=== PATIENT | female | born 1980 | race Caucasian/White ===

== ENCOUNTER 2016-11-24 11:23 | Observation (INO) | payer OTHER ==
[2016-11-04 10:47] LABS: ADD DIFF? NO; ADD MORPH? NO; ADD SCAN? NO; ATYPICAL LYMPHOCYTE FLAG 10 (0-99); FRAGMENT RBC FLAG 0 (0-99); HEMATOCRIT 41.4 % (38.0-47.0); HEMOGLOBIN 13.9 g/dL (12.6-16.3); LEFT SHIFT FLG 0 (0-99); LIPEMIA HEMOLYSIS FLAG 80 (0-99); MEAN CELL HEMOGLOBIN 30.3 pg (27.9-34.1); MEAN CELL HEMOGLOBIN CONCENTR. 33.6 g/dL (32.4-36.7); MEAN CELL VOLUME 90.4 fL (81.5-99.8); PLATELET CLUMPS FLAG 20 (0-99); PLATELET COUNT 253 10^3/uL (150-400); RED BLOOD CELL COUNT 4.58 10^6/uL (4.18-5.33); RED CELL DISTRIBUTION WIDTH 13.3 % (11.5-15.2)
--- NOTE | 2016-11-24 07:29 | PDGENHP ---
History and Physical History and Physical: Assessment and Plan: 1. Dysmenorrhea Sharyn's dysmenorrhea, dyschezia, and pelvic pain are highly concerning for endometriosis. We reviewed all conservative and surgical options. At the end of our discussion she is interested in undergoing surgery. This will be a robotic assisted hysterectomy, excision of all endometriosis. She has given me permission to remove one or both ovaries if I deem it in her best interest to reduce her chance of recurrent or persistent pain. 2. Endometriosis of pelvic peritoneum 3. Rectocele She is symptomatic from her rectocele. This will be repaired at the same time. 4. Genuine stress incontinence She would benefit from a mid urethral sling procedure. Subjective: Patient ID: Sharyn Michaud is a 36 y.o. female who presents to [facility] for surgical consultation. TAMARA Coles is a 36-year-old para 2 woman using vasectomy for contraception. Last May she began feeling some tailbone area pain. She discussed this with her chiropractor. She then was referred to Dr. Flores for a possible spine issue. He ordered an MRI which showed a retroverted uterus with possible associated scarring. She then was referred to Dr. Tejada for further evaluation. She had a pelvic ultrasound which was reportedly normal. He performed an endometrial biopsy given her irregular menstrual cycles. This showed mid secretory endometrium with no hyperplasia nor malignancy. She also discussed with him her leaking urine with exercise and coughing. She then was referred to me. Her cycles have been very irregular, anywhere from 28-90 days. She typically will develop pelvic pain beginning several days before her menstrual flow. The first 2 days of bleeding causes horrific pain in her pelvis, hips, vagina, and tailbone area. Fortunately she has no dyspareunia. She does have some deep dyschezia. She also finds it difficult to pass bowel movements as though it gets stuck just inside the anus. She will put her feet up on a stool and lean back to pass bowel movements. The tailbone area pain feels like a dull burning ache. It will radiate to her low back and hips. It can wax and wane but is typically worse the first 2 days of her menstrual cycle. She has seen gastroenterology who performed a flexible sigmoidoscopy. No abnormalities were seen. However he felt she might have some pelvic floor muscle spasms and recommended physical therapy. Additionally she has seen Dr. Christine who diagnosed her with low estrogen and progesterone. She was started on bioidentical hormones which did not help any of her symptoms. PastMedicalHistory Past Medical History: Diagnosis Date JACIEL positive Ganglion of wrist Heart palpitations 1999 at high elevation/ low o2 sat PastSurgicalHistory Past Surgical History: Procedure Laterality Date BREAST ENHANCEMENT SURGERY 2007 TONSILLECTOMY WRIST SURGERY 2010 CURRENT MEDICATIONS: Current Outpatient Prescriptions Medication Sig etonogestrel-ethinyl estradiol (NUVARING) 0.12-0.015 mg/[address] each vaginally See Admin Instructions. Reported on 10/12/2016 LACTOBACILLUS ACIDOPHILUS (PROBIOTIC PO) Reported on 10/12/2016 MULTIVIT-MINERALS/FOLIC ACID (VITACEL PO) Reported on 10/12/2016 multivitamin capsule Take 1 capsule by mouth daily. Reported on 10/12/2016 No current facility-administered medications for this visit. ALLERGIES: Penicillins I have reviewed, verified and agree with the past medical, surgical, , family, social and ROS history as documented by the RN today. Review of Systems Objective: Vital Signs: Visit Vitals BP 100/60 Pulse 54 Temp 37.1 C (98.8 F) Resp 16 Ht 1.562 m (5' 1.5") Wt 62.1 kg (136 lb 12.8 oz) SpO2 98% BMI 25.43 kg/m2 Physical Exam Gen: This is an alert, well developed woman in no distress. Neuro: She moves all extremities. Psych: She is appropriate, oriented, with normal affect. Neck: No thyroid enlargement, adenopathy, or tenderness. Lungs: Clear to ascultation, no wheezes or rales. Heart: Regular rate and rhythm without obvious murmurs. Abdomen: Soft, non-tender, without guarding, rebound, or masses. Extremities: No edema or cyanosis. Pelvic: Normal external genitalia. Vagina without discharge, adequately estrogenized. Cervix without lesions or discharge. Uterus normal sized. Adnexa without enlargement. The introitus is mildly gaping. She has an almost third degree rectocele. The urethra is mobile with obvious leakage of urine with coughing. She has tenderness surrounding the cervix and throughout the posterior cul-de-sac. The uterus has minimal mobility with extreme tenderness with rotation. DATA: I have reviewed patient's [facility] medical records. Summary findings include as noted above. TIME/COMMUNICATION: I personally spent a total of 50 minutes. Of that 35 minutes was counseling/ coordination of patient's care. See my note above for details. Zach Pedro MD Board Certified Female Pelvic Medicine and Reconstructive Surgery Director of Minimally Invasive Gynecologic Surgery, [facility] Minimally Invasive Gynecologic Surgery Designee
[~2016-11-24 11:23] MED LIST: PHENAZOPYRIDINE HCL 200 MG TAB PO ONE; PHENAZOPYRIDINE HCL 200 MG TAB PO SCH; ceFAZolin 2 GM/DEXTROSE 100 ML IV ONE
[2016-11-24] MEDS ORDERED: LIDOCAINE 1% 2 ML INJ ONE (12:39)
[2016-11-24] MEDS ORDERED: LIDOCAINE 1% 2 ML INJ ID PRN (12:45)
[2016-11-24] MEDS ORDERED: LR 1,000 ML IV ONE (12:45)
[2016-11-24] MEDS ORDERED: CLINDAMYCIN 900 MG/DEXTROSE 50 ML IV ONE (13:07)
[2016-11-24] MEDS ORDERED: ROCURONIUM 50 MG/5 ML VIAL ONE (13:27)
[2016-11-24] MEDS ORDERED: MIDAZOLAM 2 MG/2 ML VIAL ONE (13:27)
[2016-11-24] MEDS ORDERED: DEXAMETHASONE 4 MG/ML VIAL ONE ×2 (13:27)
[2016-11-24] MEDS ORDERED: LIDOCAINE 2% 100 MG/5 ML SYR ONE (13:27)
[2016-11-24] MEDS ORDERED: RANITIDINE 50 MG/2 ML VIAL ONE (13:27)
[2016-11-24] MEDS ORDERED: PROPOFOL 200 MG/20 ML VIAL ONE (13:27)
[2016-11-24] MEDS ORDERED: PHENAZOPYRIDINE HCL 200 MG TAB PO ONE (13:30)
[2016-11-24] MEDS ORDERED: BUPIVACAINE/EPI 0.5% 30 ML SDV ONE (13:32)
--- NOTE | 2016-11-24 14:25 | PDANEPAE ---
ANE Past Medical History - Cardiovascular History Hx Hypertension: No Hx Arrhythmias: Yes Hx Chest Pain: No Hx Coronary Artery / Peripheral Vascular Disease: No Hx CHF / Valvular Disease: No Hx Palpitations: No - Pulmonary History Hx COPD: No Hx Asthma/Reactive Airway Disease: No Hx Recent Upper Respiratory Infection: No Hx Oxygen in Use at Home: No - Neurologic History Hx Cerebrovascular Accident: No Hx Seizures: No Hx Dementia: No - Endocrine History Hx Diabetes: No - Renal History Hx Renal Disorders: No - Liver History Hx Hepatic Disorders: No - Neurological & Psychiatric Hx Hx Neurological and Psychiatric Disorders: Yes - Cancer History Hx Cancer: No - Congenital Disorder History Hx Congenital Disorders: No - GI History Hx Gastrointestinal Disorders: No - Chronic Pain History Chronic Pain: No ANE Review of Systems - Exercise capacity METS (RN): 4 METS ANE Patient History - Allergies Allergies/Adverse Reactions: Penicillins Allergy (Verified 10/29/16 14:44) Other-Enter Comments - Home Medications Home Medications: NK [No Known Home Meds] 11/24/16 [Last Taken Unknown] - NPO status NPO Since - Liquids (Date): 11/23/16 NPO Since - Liquids (Time): 23:55 NPO Since - Solids (Date): 11/23/16 NPO Since - Solids (Time): 23:30 - Smoking Hx Smoking Status: Former smoker - Family Anes Hx Family Hx Anesthesia Complications: none ANE Labs/Vital Signs - Labs Result Diagrams: 11/04/16 10:36 - Vital Signs Blood Pressure: 93/67 Heart Rate: 57 Respiratory Rate: 16 O2 Sat (%): 96 Height: 154.94 cm Weight: 61.235 kg ANE Physical Exam - Airway Mallampati Score: Class 1 Mouth exam: normal dental/mouth exam - Pulmonary Pulmonary: no respiratory distress - Cardiovascular Cardiovascular: regular rate and rhythym - ASA Status ASA Status: I
[2016-11-24] MEDS ORDERED: HYDROmorphONE/DILAUDID 2 MG/ML INJ ONE (14:59)
[2016-11-24] MEDS ORDERED: ONDANSETRON 4 MG/2 ML VIAL ONE (15:02)
[2016-11-24] MEDS ORDERED: DIAZEPAM 10 MG/2 ML SYR IVP PRN (15:51)
[2016-11-24] MEDS ORDERED: HYDROCODONE/APAP 5/325 TAB PO PRN ×2 (15:51→16:01)
[2016-11-24] MEDS ORDERED: PHENAZOPYRIDINE HCL 100 MG TAB PO ONE (15:51)
[2016-11-24] MEDS ORDERED: OXYCODONE/APAP 5/325 TAB PO PRN ×2 (15:51→16:01)
[2016-11-24] MEDS ORDERED: PROMETHAZINE HCL 25 MG/ML INJ IVP PRN ×2 (15:51→16:01)
[2016-11-24] MEDS ORDERED: ONDANSETRON 4 MG/2 ML VIAL IVP PRN ×2 (15:51→16:01)
--- NOTE | 2016-11-24 15:55 | POSTOPPROG ---
Post Op Note Date of Operation: 11/24/16 Surgeon: Zach Pedro Compensation Agent: Kelly Montilla Anesthesiologist: Zaida Anesthesia: GET(General Endotracheal) Pre-op Diagnosis: dysmenorrhea, stress incontinence Post-op Diagnosis: Same Procedure: Robotic hyst RSO, US lig colpopexy, TOT sling, Rectocele repair, excise end Findings: ureters function at end of case Inf/Abcess present in the surg proc area at time of surgery?: No EBL: Minimal Complications: None
[2016-11-24] MEDS ORDERED: LR 1,000 ML IV SCH (16:00)
[2016-11-24] MEDS ORDERED: HYDROmorphONE/DILAUDID 1 MG/ML SYR IVP PRN (16:01)
[2016-11-24] MEDS ORDERED: ALBUTEROL 3 ML DEYVIAL IH PRN (16:01)
[2016-11-24] MEDS ORDERED: MEPERIDINE 25 MG/ML SYR IVP PRN (16:01)
[2016-11-24] MEDS ORDERED: NALOXONE HCL 0.4 MG/ML INJ IVP PRN (16:01)
[2016-11-24] MEDS ORDERED: ACETAMINOPHEN 500 MG TAB PO PRN (16:01)
--- NOTE | 2016-11-24 16:03 | POSTANESTH ---
Post Anesthetic Evaluation Respiratory Status: Normal, Stable Level of Consciousness/Mental Status: Can Participate in Eval Pain Control: Adequate, Prn Tx Ordered Nausea/Vomiting Control: Adequate, Prn Tx Ordered Complications Possibly Related to Anesthesia: None Noted
[2016-11-24] MEDS ORDERED: DIAZEPAM 10 MG/2 ML SYR ONE (16:09)
[2016-11-24] MEDS ORDERED: HYDROmorphONE/DILAUDID 1 MG/ML SYR ONE (16:09)
[2016-11-24] MEDS ORDERED: fentaNYL 100 MCG/2 ML INJ ONE ×2 (16:09→16:10)
[2016-11-24] MEDS: fentaNYL 100 MCG/2 ML INJ IVP PRN ×3 (16:15→16:42)
[2016-11-24] MEDS: SIMETHICONE 80 MG TAB CHEW PO SCH ×2 (19:30→21:00)
[2016-11-24] MEDS: KETOROLAC 30 MG/1 ML SDV IVP SCH (20:25)
[2016-11-24] MEDS: DOCUSATE SODIUM 100 MG CAP PO SCH (22:44)
[2016-11-24] MEDS: HYDROmorphONE/DILAUDID 1 MG/ML SYR IVP PRN (22:44)
[2016-11-25] MEDS: KETOROLAC 30 MG/1 ML SDV IVP SCH ×2 (02:07→08:39)
[2016-11-25] MEDS: HYDROmorphONE/DILAUDID 1 MG/ML SYR IVP PRN (04:31)
[2016-11-25 04:55] VITALS: RESP 16
--- NOTE | 2016-11-25 05:56 | GOP ---
[f rep st] OPERATIVE REPORT DATE OF OPERATION: 11/24/2016 SURGEON: Zach Pedro MD OPERATOR VACUUM: Kelly Montilla CFA. ANESTHESIA: General. PREOPERATIVE DIAGNOSIS: 1. Dysmenorrhea. 2. Pelvic pain. 3. Uterine prolapse. 4. Stress urinary incontinence. 5. Symptomatic rectocele. POSTOPERATIVE DIAGNOSIS: 1. Dysmenorrhea. 2. Pelvic pain. 3. Uterine prolapse. 4. Stress urinary incontinence. 5. Symptomatic rectocele. 6. Endometriosis. PROCEDURE PERFORMED: 1. Robotic-assisted total laparoscopic hysterectomy, bilateral salpingectomy, right oophorectomy. 2. Bilateral uterosacral ligament colpopexy. 3. Excision of endometriosis. 4. Uterosacral ligament colpopexy. 5. Transobturator sling. 6. Rectocele repair. 7. Cystoscopy. FINDINGS: SPECIMENS: Uterus, cervix, bilateral tubes and right ovary. ESTIMATED BLOOD LOSS: 30 mL DESCRIPTION OF PROCEDURE: The patient was taken to the operating room. She was identified. Genera l anesthesia was administered and found to be adequate. She was placed in the lithotomy position an d prepared and draped in normal sterile fashion. A VCare uterine manipulator was placed into the en dometrial cavity and sutured to the cervix. A Garcia catheter was then placed. A 1 cm infraumbilical incision was made with a scalpel. The Veress needle with CO2 gas flowing was advanced into the peritoneal cavity. The abdomen was then insufflated with carbon dioxide gas. The 12 mm trocar followed by the laparoscope were then inserted. The upper abdomen was unremarkable. Two lateral ports placed in the right and 1 on the left under direct visualization. She then was pl aced in Trendelenburg position and the da Chao robot docked on the left side. The instruments were then brought through the abdominal cavity under direct visualization. She was found to have endometriosis in the posterior cul-de-sac. She also appeared to have pelvic c ongestion syndrome with multiple, very dilated, pelvic vessels. The left fallopian tube was separat ed along the mesosalpinx. The utero-ovarian ligament, followed by the round ligament, were then cau terized and transected. The anterior leaf of the broad ligament was then incised over the left uter ine vessels and across the cervix. The bladder was gently dissected off the cervix and upper vagina . The left uterine vasculature was then cauterized and transected. The right round ligament was divided. The anterior leaf of the broad ligament was incised to the bi furcation of the right common iliac vessels. A window was created in the posterior leaf to skeleton ize the infundibulopelvic vessels. They were then cauterized and transected. The broad ligament on the right was incised and the right uterine vasculature cauterized and transected. A circumferenti al colpotomy incision was then made with the hot chino. The specimen was removed through the vagin a. The posterior cul-de-sac peritoneum from the distal rectum to the vaginal cuff and laterally to the uterosacral ligament was completely excised and sent to Pathology. The vaginal cuff was then cl osed with a running suture of 0 V-Loc 180. A bilateral uterosacral ligament colpopexy was performed by attaching the lateral aspects of the vaginal cuff to the ipsilateral uterosacral ligaments near their insertion into the coccygeal-sacrospinous ligament complexes. The pelvis was then irrigated w ith sterile saline and hemostasis was present. The robot was then undocked. The fascia was closed with 0 Vicryl. The skin with 4-0 Monocryl and surgical adhesive. Attention was then turned to the sling portion of the procedure. A mid urethral incision was made w ith a scalpel. Tunnels were created bilaterally out to the obturator internus muscles. Skin incisi ons were made over the obturator notches. The Halo trocar was placed through the left skin incision , redirected around the ischial pubic rami and out through the vaginal incision using a vaginal fing er as a guide. The sling was then attached and brought out along the same course. The exact same p rocedure was performed on the patient's right side. The sling was then adjusted to allow a small mi d urethral gap. The vaginal epithelium was closed with 2-0 Vicryl, skin with 4-0 Monocryl. Attention was then turned to the rectocele repair. A transverse incision was made along the perinea l body. The posterior vaginal epithelium was undermined with the Metzenbaum scissors and incised sa gittally. The epithelium was then taken off the underlying rectovaginal connective tissue. The con nective tissue was plicated in midline with interrupted sutures of 0 Vicryl. A perineorrhaphy was t hen performed by plicating the bulbous spongiosis and transverse perineal muscles in the midline als o with 0 Vicryl suture. The excess epithelium was then trimmed and a running 2-0 Vicryl suture was used to close the epithelium. Vaginal packing was then placed. Anesthesia was reversed. The patie nt taken to the PACU, awake, in stable condition. COMPLICATIONS: None. DISPOSITION: Patient stable to PACU. /[id number]/MODL
[2016-11-25 06:30] LABS: HEMATOCRIT 36.7 % (38.0-47.0); HEMOGLOBIN 12.6 g/dL (12.6-16.3)
[2016-11-25] MEDS: DOCUSATE SODIUM 100 MG CAP PO SCH (08:40)
[2016-11-25 08:51] VITALS: BP 93/61; PULSE 66; TEMP 98; O2SAT 100
--- NOTE | 2016-11-25 09:28 | SOAPPROG ---
SOAP Progress Note Assessment/Plan: Assessment: Doing great Plan: 11/25/16 09:27 home Objective: Vital Signs Temp Pulse Resp BP Pulse Ox 36.6 C 66 16 93/61 L 100 11/25/16 08:50 11/25/16 08:50 11/25/16 08:50 11/25/16 08:50 11/25/16 08:50 Laboratory Results 11/25/16 06:05 11/24/16 11/25/16 11/26/16 05:59 05:59 05:59 Intake Total 3830 Output Total 1575 500 Balance 2255 -500 Physical Exam - Physical Exam General Appearance: WD/WN, alert, no apparent distress Respiratory: lungs clear Cardiac/Chest: regular rate, rhythm Abdomen: normal bowel sounds, non-tender, soft (Incisions clean, dry, and intact.) ICD10 Worksheet Patient Problems: Problems Problem Status Onset Dysmenorrhea Acute - ICD10 Problem Qualifiers (1) Dysmenorrhea
[2016-11-25] MEDS: SIMETHICONE 80 MG TAB CHEW PO SCH (15:24)
--- NOTE | 2016-11-26 06:20 | GDS ---
[f rep st] DISCHARGE SUMMARY DISCHARGE DIAGNOSES: 1. Dysmenorrhea. 2. Menorrhagia. 3. Endometriosis. 4. Stress urinary incontinence. 5. Symptomatic rectocele. PROCEDURES: 1. Robotic-assisted total laparoscopic hysterectomy, bilateral salpingectomy, right oophorectomy. 2. Bilateral uterosacral ligament colpopexy. 3. Excision of endometriosis in posterior cul-de-sac. 4. Transobturator sling. 5. Rectocele repair. 6. Cystoscopy. HOSPITAL COURSE: The patient is a 36-year-old, para 2, female with painful menses, stress incontine nce, and a rectocele. She was taken to the operating room on 11/24/2016, where she underwent the ab ove-mentioned procedures without complications. Her postoperative course was uneventful. The morning after surgery she was ambulating, voiding, and tolerating a general diet. She was discharged home on postoperative day #1 in good condition. Med ications included ibuprofen and Calvin for pain. She was to follow up in the office 2 weeks after anupama vázquez. /[id number]/MODL
== END 2016-11-25 11:30 | disposition home or self-care (01) ==
LOC: FSGY 11:23 → F3E 16:00 → FOB 17:53
PROVIDERS: ADMIT Obstetrics & Gynecology; ATTEND Obstetrics & Gynecology
DX: N80.3 Endometriosis of pelvic peritoneum (principal); N94.6 Dysmenorrhea, unspecified; N92.0 Excessive and frequent menstruation with regular cycle; R32 Unspecified urinary incontinence; N81.6 Rectocele
CPT/HCPCS: 57250; 57283; 57288; 58571; G0378; C1771; J1100; J1170; J1885; J1956; J2001; J2250; J2405; J2704; J2780; J3010